=== PATIENT | female | born 1980 | race African-American/Black ===

== ENCOUNTER 2018-06-03 14:36 | Emergency (ER) | END 2018-06-03 15:11 | disposition home or self-care (01) | DX: K21.0 Gastro-esophageal reflux disease with esophagitis (principal) ==

== ENCOUNTER 2025-04-04 21:29 | Emergency (ER) | payer MEDICAID, OTHER ==
[~2025-04-04] VITALS: Ht 152.4 cm; Wt 59.0 kg
[2025-04-04] MEDS: APIXABAN 5 MG TABLET PO ONE (23:38)
[2025-04-04 23:49] LABS: PLATELET COUNT (AUTO) 143 K/uL (179-408); RED BLOOD CELL COUNT(AUTO) 4.30 MIL/uL (3.63-4.92); RED CELL DISTRIBUTION WIDTH 13.7 % (12.3-17.7); WHITE BLOOD COUNT (AUTO) 7.2 K/uL (3.8-11.8)
[2025-04-04 23:55] LABS: CREATININE 0.9 mg/dL (0.6-1.3); SODIUM SERUM 139.0 mmol/L (136-145); UREA NITROGEN, BLOOD 11.0 mg/dL (7-18)
[2025-04-05 00:01] LABS: ASPARTATE AMINOTRANSFERASE 13.0 U/L (15-37); TOTAL PROTEIN, SERUM 7.4 g/dL (6.4-8.2)
[2025-04-05 00:05] VITALS: BP 112/84
[2025-04-05] MEDS ORDERED: APIX5TAB4 PO (00:19)
[2025-04-05 00:55] VITALS: BP 112/84; TEMP 98; O2SAT 98
== END 2025-04-05 00:56 | disposition home or self-care (01) ==
LOC: ER 21:29
DX: I82.412 Acute embolism and thrombosis of left femoral vein (principal); I82.442 Acute embolism and thrombosis of left tibial vein; Z79.01 Long term (current) use of anticoagulants
CPT/HCPCS: 36415; 73560; 85025; 85730; A4606; A4663

== ENCOUNTER 2025-04-07 23:16 | Emergency (ER) | payer OTHER ==
[~2025-04-07] VITALS: Ht 152.4 cm; Wt 59.0 kg
[2025-04-07 23:16] VITALS: BP 105/63
[~2025-04-07 23:16] MED LIST: APIX5TAB4 PO
[2025-04-08] MEDS ORDERED: HYDROCODONE/APAP 5-325MG TABLET PO ONE (00:30)
[2025-04-08] MEDS ORDERED: ACETAMINOPHEN 500 MG TABLET PO ONE (00:30)
[2025-04-08] MEDS ORDERED: HYDR-4209 PO (00:31)
[2025-04-08] MEDS ORDERED: ONDA4TAB11 PO (00:31)
[2025-04-08 00:53] VITALS: BP 110/66; TEMP 98.2; O2SAT 98
== END 2025-04-08 00:54 | disposition home or self-care (01) ==
LOC: ER 23:27
DX: M25.562 Pain in left knee (principal); I82.402 Acute embolism and thrombosis of unspecified deep veins of left lower extremity; Z79.01 Long term (current) use of anticoagulants; Z86.718 Personal history of other venous thrombosis and embolism
CPT/HCPCS: A4606; A4663